=== PATIENT | male | born 1970 | race Caucasian/White ===

== ENCOUNTER 2017-02-11 17:40 | Emergency (ER) | payer OTHER ==
[~2017-02-11] VITALS: Ht 185.4 cm; Wt 92.5 kg
[2017-02-11 17:58] VITALS: BP 108/63
[2017-02-11] MEDS ORDERED: MIRT15TA PO (18:05)
[2017-02-11] MEDS ORDERED: TRAZ-286 PO (18:05)
[2017-02-11] MEDS ORDERED: RISP0.5T PO (18:05)
[2017-02-11] MEDS ORDERED: NACL 0.9% 1,000 ML IV SCH (18:07)
--- NOTE | 2017-02-11 18:09 | NUR ---
PATIENT TO ER BED 2.
--- NOTE | 2017-02-11 18:09 | NUR ---
PATIENT PRESENTS TO ED WITH SI with a plan to run into traffic . PT STATES feeling depressed . DENIES N/V/D; SKIN IS PINK/WARM/DRY; AAOX4 WITH EVEN AND STEADY GAIT; LUNGS CLEAR BL; HR EVEN AND REGULAR; PT DENIES ANY FEVER, CP, SOB, OR COUGH AT THIS TIME; PATIENT STATES PAIN OF 0/10 AT THIS TIME; VSS; PATIENT POSITIONED FOR COMFORT; HOB ELEVATED; BEDRAILS UP X2; BED DOWN. ER MD MADE AWARE OF PT STATUS.
--- NOTE | 2017-02-11 18:12 | NUR ---
Patient being evaluated by physician at bedside.
--- NOTE | 2017-02-11 18:15 | NUR ---
pt changed into a gown--property removed--security called for property
--- NOTE | 2017-02-11 18:28 | NUR ---
X-Ray at bedside.
[2017-02-11 18:35] LABS: BASOPHILS # (AUTO) 0.1 K/uL (0.00-0.22); BASOPHILS % (AUTO) 1.6 % (0.0-2.0); EOSINOPHILS # (AUTO) 0.3 K/uL (0-0.4); EOSINOPHILS % (AUTO) 4.5 % (0.0-4.0); HEMATOCRIT 41.1 % (36-52); HEMOGLOBIN 13.6 g/dL (12.0-18.0); LYMPHOCYTES # (AUTO) 1.9 K/uL (2.0-11.5); LYMPHOCYTES % (AUTO) 24.5 % (20.5-51.1); MEAN CORPUSCULAR HEMOGLOBIN 29 pg (27-31); MEAN CORPUSCULAR HGB CONC 33 g/dL (33-37); MEAN CORPUSCULAR VOLUME 89 fL (80-94); MONOCYTES # (AUTO) 0.9 K/uL (0.8-1.0); MONOCYTES % (AUTO) 11.6 % (1.7-9.3); NEUTROPHILS # (AUTO) 4.4 K/uL (1.8-7.7); NEUTROPHILS % (AUTO) 57.8 % (42.2-75.2); PLATELET COUNT (AUTO) 243 K/uL (140-450); RED BLOOD CELL COUNT(AUTO) 4.61 MIL/uL (4.20-6.10); RED CELL DISTRIBUTION WIDTH 13.6 % (11.6-13.7); WHITE BLOOD COUNT (AUTO) 7.6 K/uL (4.8-10.8)
[2017-02-11 18:45] LABS: ANION GAP 10.7 (8-16); CALCIUM 8.4 mg/dL (8.5-10.1); CARBON DIOXIDE 30.6 mmol/L (21-32); CREATININE 1.2 mg/dL (0.6-1.3); POTASSIUM 4.3 mmol/L (3.5-5.1)
[2017-02-11 18:50] LABS: ALBUMIN 3.6 g/dL (3.4-5.0); TOTAL BILIRUBIN 0.4 mg/dL (0.0-1.0); TOTAL PROTEIN, SERUM 6.8 g/dL (6.4-8.2)
--- NOTE | 2017-02-11 19:10 | NUR ---
report received from Cory Mac.
[2017-02-11 19:23] LABS: INR 1.1 (0.8-1.2); PARTIAL THROMBOPLASTIN TIME 28.7 secs (22-35.6); PROTHROMBIN TIME 10.8 secs (10.8-13.4)
[2017-02-11 19:28] LABS: APPEARANCE,URINE CLEAR (CLEAR); BILIRUBIN,URINE NEGATIVE (NEGATIVE); BLOOD, URINE NEGATIVE (NEGATIVE); COLOR,URINE YELLOW (YELLOW); LEUKOCYTE ESTERASE ,URINE NEGATIVE (NEGATIVE); NITRITE, URINE NEGATIVE (NEGATIVE); PROTEIN,URINE NEGATIVE (NEGATIVE); UGLUCOSE NEGATIVE (NEGATIVE); UROBILINOGEN,URINE 0.2 EU/dL (0.2 - 1)
[2017-02-11 19:29] LABS: BACTERIA,URINE 1-9 (FEW) /HPF (None Seen); RBC,URINE 0-5 (RARE) /HPF (0-5); SQUAMOUS EPITHELIAL CELL,UR 0-3 (FEW) /LPF (0-3 (FEW)); WBC,URINE 0-5 (RARE) /HPF (0-5)
--- NOTE | 2017-02-11 19:30 | NUR ---
PT ACTING APPROPRIATE AT BEDSIDE. TALKING WITH RN, RESPONDING TO QUESTIONS BEING ASKED.
[2017-02-11 19:37] LABS: AMPHETAMINE, URINE NEG. ng/ml (NEG <=1000); BARBITURATE, URINE NEG. ng/ml (NEG <=200); BENZODIAZEPINE, URINE NEG. ng/mL (NEG <=200); CANNABINOID, URINE POS. ng/mL (NEG <=50); COCAINE, URINE NEG. ng/mL (NEG <=300); OPIATE, URINE NEG. ng/mL (NEG <=2000); PHENCYCLIDINE SCREEN,URINE NEG. ng/mL (NEG <=25)
--- NOTE | 2017-02-11 19:40 | NUR ---
PT EATING DINNER AT BEDSIDE AT THIS TIME.
--- NOTE | 2017-02-11 19:45 | NUR ---
NO THREAT TO SELF OR OTHERS NOTED AT THIS TIME.
--- NOTE | 2017-02-11 19:49 | NUR ---
OFFICER MORELIA FROM [place] [employer] AT BEDSIDE. [address].
--- NOTE | 2017-02-11 20:05 | NUR ---
PT APPEARS TO BE SLEEPING AT THIS TIME.
--- NOTE | 2017-02-11 20:45 | NUR ---
NO THREAT TO SELF OR OTHERS NOTED AT THIS TIME.
--- NOTE | 2017-02-11 21:45 | NUR ---
NO THREAT TO SELF OR OTHERS NOTED AT THIS TIME
--- NOTE | 2017-02-11 22:45 | NUR ---
NO THREAT TO SELF OR OTHER NOTED AT THIS TIME.
--- NOTE | 2017-02-11 22:50 | NUR ---
PT SLEEPING, NO ACUTE DISTRESS NOTED AT THIS TIME. NO THREAT TO SELF OR TO OTHERS NOTED.
--- NOTE | 2017-02-11 22:53 | NUR ---
PT SLEEPING AT THIS TIME.
--- NOTE | 2017-02-11 23:15 | NUR ---
TALKED TO JEANNETTE AT [facility] AND REPORT GIVEN.
--- NOTE | 2017-02-11 23:44 | NUR ---
REPORT GIVEN TO CAROLYN JOHNSON AT [facility] [address] , PH # [phone].
--- NOTE | 2017-02-11 23:45 | NUR ---
NO THREAT TO SELF OR OTHERS AT THIS TIME.
[2017-02-12 00:22] VITALS: BP 114/72
--- NOTE | 2017-02-12 00:22 | NUR ---
Patient to be transferred to [facility]. Is being transferred due to 5150. Receiving facility has accepting physician and available space. ER physician has signed transfer form. Patient or responsible libertarian has agreed to transfer and signed form. Patient belongings inventoried and will be sent with patient. Copy of nursing notes, lab reports, EKG, Physicians Orders and X-rays to be sent with patient. Report called to CAROLYN JOHNSON at receiving facility. [facility] ambulance service has been called for transfer. ETA is NOW.
== END 2017-02-12 00:22 ==
LOC: MED 17:40
PROC: 3E033GC Introduction of Other Therapeutic Substance into Peripheral Vein, Percutaneous Approach (ICD-10-PCS; principal; 2017-02-11)
PROC: 4A02X4Z Measurement of Cardiac Electrical Activity, External Approach (ICD-10-PCS; 2017-02-11)
DX: F23 Brief psychotic disorder (principal); R45.851 Suicidal ideations; F12.10 Cannabis abuse, uncomplicated; F17.200 Nicotine dependence, unspecified, uncomplicated; Z88.8 Allergy status to other drugs, medicaments and biological substances
CPT/HCPCS: 36415; 71010; 80053; 80305; 81001; 82150; 83690; 83880; 84484; 85025; 85610; 85730; 93005; 96360; 99285; J7030; Q0092